=== PATIENT | female | born 1965 | race Caucasian/White ===

== ENCOUNTER 2017-11-20 18:00 | Emergency (ER) | payer BC ==
[2017-11-20 18:28] VITALS: BP 169/76
--- NOTE | 2017-11-20 19:16 | EDM.PDOC ---
ED HPI GENERAL MEDICAL PROBLEM - General Chief Complaint: Abdominal Pain Stated Complaint: abdominal pain Time Seen by Provider: 11/20/17 18:05 Source of Information: Reports: Patient History Limitations: Reports: No Limitations - History of Present Illness INITIAL COMMENTS - FREE TEXT/NARRATIVE: Patient was at home getting when she has sudden onset of left lower quadrant discomfort sharpshooting pains that radiated to her umbilicus area. Patient states she became nauseous and dry heaves denies any diarrhea did have a bowel movement today denies any other similar illnesses fever chest pain shortness of breath. Denies eating any raw fish products raw meat or foreign travel within the last 30 days does have 2cats, 2 Dogs at Home but states they are vet certified. Onset: Sudden Onset Time: 01:00 Duration: Hour(s): Quality: Reports: Sharp, Stabbing Improves with: Reports: Immobilization, Rest Worsens with: Reports: Movement Associated Symptoms: Reports: Nausea/Vomiting. Denies: Diaphoresis, Fever/ Chills, Headaches, Loss of Appetite, Malaise, Seizure, Shortness of Breath Right Lower Abdominal Pain Score (Numeric/FACES): 10 - Related Data Allergies Allergy/AdvReac Type Severity Reaction Status Date / Time azithromycin Allergy Swelling Verified 11/20/17 18:22 [From Zithromax Z-Patrick] erythromycin base Allergy Rash Verified 11/20/17 18:22 [From Staticin] ethyl alcohol [From Staticin] Allergy Rash Verified 11/20/17 18:22 red yeast rice Allergy Rash Verified 11/20/17 18:22 Sulfa (Sulfonamide Allergy Rash Verified 11/20/17 18:22 Antibiotics) eggplant Allergy Hives Uncoded 11/21/16 20:28 Home Meds: Home Meds Sertraline [Zoloft] 100 mg PO DAILY 11/21/16 [History] atorvaSTATin [Lipitor] 20 mg PO Q7D 11/20/17 [History] metFORMIN HCl [Metformin HCl] 1,000 mg PO BID 11/20/17 [History] Past Medical History Endocrine/Metabolic History: Reports: Diabetes, Type II Oncologic (Cancer) History: Reports: Uterine - Past Surgical History GI Surgical History: Reports: Hernia, Abdominal Musculoskeletal Surgical History: Reports: Carpal Tunnel, Other (See Below) Social & Family History - Tobacco Use Smoking Status *Q: Current Every Day Smoker Years of Tobacco use: 25 Packs/Tins Daily: 0.5 ED ROS GENERAL - Review of Systems Review Of Systems: See Below Constitutional: Reports: No Symptoms HEENT: Reports: No Symptoms Respiratory: Reports: No Symptoms Cardiovascular: Reports: No Symptoms Endocrine: Reports: No Symptoms GI/Abdominal: Reports: Abdominal Pain : Reports: No Symptoms Musculoskeletal: Reports: No Symptoms Skin: Reports: No Symptoms ED EXAM, GI/ABD - Physical Exam Exam: See Below Exam Limited By: No Limitations General Appearance: Alert, WD/WN, No Apparent Distress Respiratory/Chest: No Respiratory Distress, Lungs Clear, Normal Breath Sounds, No Accessory Muscle Use, Chest Non-Tender Cardiovascular: Normal Peripheral Pulses, Regular Rate, Rhythm GI/Abdominal Exam: Rebound, Tender, Abnormal Bowel Sounds (Female) Exam: Normal External Exam, Normal Speculum Exam, Normal Bimanual Exam Back Exam: Normal Inspection, Full Range of Motion Extremities: Normal Inspection, Normal Range of Motion, Non-Tender, No Pedal Edema Neurological: Alert, Oriented, CN II-XII Intact, Normal Cognition Skin Exam: Warm, Dry, Intact, Normal Color, No Rash Course - Vital Signs Last Recorded V/S: Last Vital Signs Temp 36.9 C 11/20/17 18:24 Pulse 77 11/20/17 18:24 Resp 16 11/20/17 18:24 BP 169/76 H 11/20/17 18:24 Pulse Ox 96 11/20/17 18:24 - Orders/Labs/Meds Orders: Active Orders 24 hr Category Date Time Status Abdomen Pelvis wo Cont [CT] Stat Exams 11/20/17 18:17 Taken Abdomen wo Cont [CT] Stat Exams 11/20/17 18:06 Stop Req Sodium Chloride 0.9% @ 150 MLS/HR (1000ml) Med 11/20/17 20:45 Ordered Sodium Chloride 0.9% [Normal Saline] 1,000 ml IV ASDIRECTED Medication Orders Sodium Chloride (Normal Saline) 1,000 mls @ 150 mls/hr IV ASDIRECTED SERAFIN Labs: Laboratory Tests 11/20/17 11/20/17 11/20/17 Range/Units 18:23 18:23 18:23 WBC 12.0 H (4.0-10.0) x10^3/uL RBC 4.47 (4.00-5.50) x10^6/uL Hgb 14.3 (12.0-16.0) g/dL Hct 43.0 (33.0-47.0) % MCV 96.2 H (78.0-93.0) fL MCH 32.0 (26.0-32.0) pg MCHC 33.3 (32.0-36.0) g/dL RDW Coeff of [place] 13.4 (10.0-15.0) % Plt Count 214 (130-400) x10^3/uL Neut % (Auto) 69.3 (50.0-80.0) % Lymph % (Auto) 20.9 L (25.0-50.0) % [place] % (Auto) 5.7 (2.0-11.0) % Eos % (Auto) 4.0 (0.0-4.0) % Baso % (Auto) 0.1 L (0.2-1.2) % Sodium 140 (136-145) mmol/L Potassium 4.1 (3.5-5.1) mmol/L Chloride 102 (98-107) mmol/L Carbon Dioxide 25 (21-32) mmol/L BUN 16 (7-18) mg/dL Creatinine 1.0 (0.55-1.02) mg/dL Est Cr Clr Drug Dosing 58.12 mL/min Estimated GFR (MDRD) 59 Glucose 169 H (74-106) mg/dL Lactic Acid 1.9 (0.4-2.0) mmol/L Calcium 8.6 (8.5-10.1) mg/dL Corrected Calcium 9.08 (8.5-10.1) mg/dL Total Bilirubin 0.3 (0.2-1.0) mg/dL AST 13 L (15-37) U/L ALT 20 (14-59) U/L Alkaline Phosphatase 88 (46-116) U/L Total Protein 6.9 (6.4-8.2) g/dL Albumin 3.4 (3.4-5.0) g/dL Globulin 3.5 Albumin/Globulin Ratio 0.97 Amylase 22 L (25-115) U/L Lipase 100 (73-393) U/L Meds: Medications Generic Name Dose Route Start Last Admin Trade Name Freq PRN Reason Stop Dose Admin Sodium Chloride 1,000 mls @ 150 mls/hr 01/20/18 20:45 Normal Saline IV ASDIRECTED SERAFIN - Radiology Interpretation Free Text/Narrative:: Bowel containing ventral midline abdominal wall hernia resulting in a low to moderate grade mechanical obstruction and changes of strangulation. Hepatomegaly with diffuse stetosis CT Results Date: 11/20/17 Departure - Departure Time of Disposition: 20:46 Disposition: Home, Self-Care 01 Condition: Good Clinical Impression: Hernia with strangulation - Discharge Information Referrals: Herminia Verde NP [Primary Care Provider] - Forms: ED Department Discharge, Interfacility Transfer EMTALA - My Orders Last 24 Hours: My Active Orders 11/20/17 18:06 Abdomen wo Cont [CT] Stat 11/20/17 18:17 Abdomen Pelvis wo Cont [CT] Stat 11/20/17 20:45 Sodium Chloride 0.9% @ 150 MLS/HR (1000ml) Sodium Chloride 0.9% [Normal Saline] 1,000 ml IV ASDIRECTED - Assessment/Plan Last 24 Hours: My Active Orders 11/20/17 18:06 Abdomen wo Cont [CT] Stat 11/20/17 18:17 Abdomen Pelvis wo Cont [CT] Stat 11/20/17 20:45 Sodium Chloride 0.9% @ 150 MLS/HR (1000ml) Sodium Chloride 0.9% [Normal Saline] 1,000 ml IV ASDIRECTED
[2017-11-20] MEDS ORDERED: Sodium Chloride 0.9% 1,000 ML IV SCH (20:45)
== END 2017-11-20 21:20 | disposition short-term general hospital (02) ==
LOC: VM.ED 18:00
DX: K43.6 Other and unspecified ventral hernia with obstruction, without gangrene (principal); E11.9 Type 2 diabetes mellitus without complications; F17.210 Nicotine dependence, cigarettes, uncomplicated; Z88.1 Allergy status to other antibiotic agents; Z79.899 Other long term (current) drug therapy; Z88.8 Allergy status to other drugs, medicaments and biological substances; Z88.2 Allergy status to sulfonamides
CPT/HCPCS: 74176; 80053; 82150; 83605; 83690; 85025; 96365; 99285; J7030

== ENCOUNTER 2018-03-18 01:29 | Emergency (ER) | payer BC ==
[2018-03-18] MEDS ORDERED: Sodium Chloride 0.9% 10 ML Syringe FLUSH PRN (01:34)
[2018-03-18] MEDS ORDERED: Morphine 4 MG/ML Syringe IVPUSH ONE (01:35)
[2018-03-18] MEDS ORDERED: Ondansetron 4 MG/2 ML SDV IVPUSH ONE (01:37)
[2018-03-18 02:28] VITALS: BP 125/62
[2018-03-18 02:42] LABS: CHLORIDE,CL 102 mmol/L (98-107); SODIUM,NA 132 mmol/L (136-145)
[2018-03-18] MEDS ORDERED: cefTRIAXone 2 GM Vial IVPUSH ONE (02:45)
[2018-03-18] MEDS ORDERED: Take Home: Doxycycline 100 MG Tab, 4 Tab Pack PO ONE (02:46)
[2018-03-18] MEDS ORDERED: methylPREDNISolone Sodium Succinate 125 MG/2 ML SDV IV ONE (02:46)
--- NOTE | 2018-03-18 03:37 | EDM.PDOC ---
ED HPI GENERAL MEDICAL PROBLEM - General Chief Complaint: Chest Pain Stated Complaint: chest pain Time Seen by Provider: 03/18/18 01:35 Source of Information: Reports: Patient - History of Present Illness INITIAL COMMENTS - FREE TEXT/NARRATIVE: Pt. presents to ER with complaints of L sided anterior chest pain. Pt. states that this started tonight and is worse with deep breathing. She denies any calf pain or swelling. No radiation of the pain to her jaw, arm, neck, or back. She states that she is currently on amoxicillin for a sinus infection. 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 Onset: Today Location: Reports: Chest Quality: Reports: Ache, Burning Associated Symptoms: Reports: Chest Pain Left Chest Pain Score (Numeric/FACES): 10 - Related Data Allergies Allergy/AdvReac Type Severity Reaction Status Date / Time azithromycin Allergy Swelling Verified 03/18/18 01:33 [From Zithromax Z-Patrick] erythromycin base Allergy Rash Verified 03/18/18 01:33 [From Staticin] ethyl alcohol [From Staticin] Allergy Rash Verified 03/18/18 01:33 red yeast rice Allergy Rash Verified 03/18/18 01:33 Sulfa (Sulfonamide Allergy Rash Verified 03/18/18 01:33 Antibiotics) eggplant Allergy Hives Uncoded 03/18/18 01:33 Home Meds: Home Meds Sertraline [Zoloft] 100 mg PO DAILY 11/21/16 [History] atorvaSTATin [Lipitor] 20 mg PO Q7D 11/20/17 [History] metFORMIN HCl [Metformin HCl] 1,000 mg PO BID 11/20/17 [History] Amoxicillin 1 tab PO TID 03/18/18 [History] Liraglutide [Victoza] 1.8 mg SQ BEDTIME 03/18/18 [History] Past Medical History Cardiovascular History: Reports: High Cholesterol Genitourinary History: Reports: Other (See Below) Other Genitourinary History: hernia repair Endocrine/Metabolic History: Reports: Diabetes, Type II Oncologic (Cancer) History: Reports: Uterine - Past Surgical History GI Surgical History: Reports: Hernia, Abdominal Female Surgical History: Reports: Hysterectomy Musculoskeletal Surgical History: Reports: Carpal Tunnel Social & Family History - Tobacco Use Smoking Status *Q: Current Every Day Smoker Years of Tobacco use: 30 Packs/Tins Daily: 1 ED ROS GENERAL - Review of Systems Review Of Systems: See Below Constitutional: Reports: No Symptoms HEENT: Reports: No Symptoms Respiratory: Reports: No Symptoms Cardiovascular: Reports: Chest Pain Endocrine: Reports: No Symptoms GI/Abdominal: Reports: No Symptoms : Reports: No Symptoms Musculoskeletal: Reports: No Symptoms Skin: Reports: No Symptoms Neurological: Reports: No Symptoms Psychiatric: Reports: No Symptoms Hematologic/Lymphatic: Reports: No Symptoms Immunologic: Reports: No Symptoms ED EXAM, GENERAL - Physical Exam Exam: See Below Exam Limited By: No Limitations General Appearance: Alert, WD/WN, No Apparent Distress Ears: Normal External Exam, Normal Canal, Hearing Grossly Normal, Normal TMs Ear Exam: Bilateral Ear: Auricle Normal, Canal Normal, TM normal Nose: Normal Inspection, Normal Mucosa, No Blood Throat/Mouth: Normal Inspection, Normal Lips, Normal Teeth, Normal Gums, Normal Oropharynx, Normal Voice, No Airway Compromise Head: Atraumatic, Normocephalic Neck: Normal Inspection, Supple, Non-Tender, Full Range of Motion Respiratory/Chest: No Respiratory Distress, Normal Breath Sounds, No Accessory Muscle Use Cardiovascular: Normal Peripheral Pulses, Regular Rate, Rhythm, No Edema, No Gallop, No JVD, No Murmur, No Rub GI/Abdominal: Normal Bowel Sounds, Soft, Non-Tender, No Organomegaly, No Distention, No Abnormal Bruit, No Mass (Female) Exam: Deferred Rectal (Female) Exam: Deferred Back Exam: Normal Inspection, Full Range of Motion, NT Extremities: Normal Inspection, Normal Range of Motion, Non-Tender, Normal Capillary Refill, No Pedal Edema Neurological: Alert, Oriented, CN II-XII Intact, Normal Cognition, Normal Gait, Normal Reflexes, No Motor/Sensory Deficits Psychiatric: Normal Affect, Normal Mood Skin Exam: Warm, Dry, Intact, Normal Color, No Rash Lymphatic: No Adenopathy Course - Vital Signs Last Recorded V/S: Last Vital Signs Temp 37.3 C 03/18/18 01:30 Pulse 91 03/18/18 02:27 Resp 18 03/18/18 02:27 BP 125/62 03/18/18 02:27 Pulse Ox 90 L 03/18/18 02:27 - Orders/Labs/Meds Orders: Active Orders 24 hr Category Date Time Status EKG Documentation Completion [RC] STAT Care 03/18/18 01:34 Active Chest 2V [CR] Stat Exams 03/18/18 01:34 Taken Peripheral IV Insertion Adult [OM.PC] Routine Oth 03/18/18 01:35 Ordered Labs: Laboratory Tests 03/18/18 03/18/18 03/18/18 Range/Units 02:07 02:07 02:07 WBC 14.7 H (4.0-10.0) x10^3/uL RBC 4.63 (4.00-5.50) x10^6/uL Hgb 14.7 (12.0-16.0) g/dL Hct 44.1 (33.0-47.0) % MCV 95.2 H (78.0-93.0) fL MCH 31.7 (26.0-32.0) pg MCHC 33.3 (32.0-36.0) g/dL RDW Coeff of [place] 13.6 (10.0-15.0) % Plt Count 242 (130-400) x10^3/uL Neut % (Auto) 76.6 (50.0-80.0) % Lymph % (Auto) 13.6 L (25.0-50.0) % [place] % (Auto) 7.5 (2.0-11.0) % Eos % (Auto) 2.2 (0.0-4.0) % Baso % (Auto) 0.1 L (0.2-1.2) % PT 9.6 (9.6-11.4) SEC INR 0.9 L (2.0-3.5) D-Dimer, Quantitative 0.37 (<=0.58) mg/LFEU Sodium 132 L (136-145) mmol/L Potassium 4.3 (3.5-5.1) mmol/L Chloride 102 (98-107) mmol/L Carbon Dioxide 23 (21-32) mmol/L Anion Gap 11.3 (10-20) mmol/L BUN 16 (7-18) mg/dL Creatinine 0.8 (0.55-1.02) mg/dL Est Cr Clr Drug Dosing TNP Estimated GFR (MDRD) > 60 Glucose 123 H (74-106) mg/dL Calcium 8.9 (8.5-10.1) mg/dL Corrected Calcium 9.38 (8.5-10.1) mg/dL Magnesium 1.9 (1.8-2.4) mg/dL Total Bilirubin 0.4 (0.2-1.0) mg/dL AST 12 L (15-37) U/L ALT 19 (14-59) U/L Alkaline Phosphatase 73 (46-116) U/L POC Troponin I (0.00-0.08) ng/mL C-Reactive Protein 13.4 H (<=0.9) mg/dL NT-Pro-B Natriuret Pep 20 (<=125) pg/mL Total Protein 7.4 (6.4-8.2) g/dL Albumin 3.4 (3.4-5.0) g/dL Globulin 4.0 Albumin/Globulin Ratio 0.85 // Range/Units 02:13 WBC (4.0-10.0) x10^3/uL RBC (4.00-5.50) x10^6/uL Hgb (12.0-16.0) g/dL Hct (33.0-47.0) % MCV (78.0-93.0) fL MCH (26.0-32.0) pg MCHC (32.0-36.0) g/dL RDW Coeff of [place] (10.0-15.0) % Plt Count (130-400) x10^3/uL Neut % (Auto) (50.0-80.0) % Lymph % (Auto) (25.0-50.0) % [place] % (Auto) (2.0-11.0) % Eos % (Auto) (0.0-4.0) % Baso % (Auto) (0.2-1.2) % PT (9.6-11.4) SEC INR (2.0-3.5) D-Dimer, Quantitative (<=0.58) mg/LFEU Sodium (136-145) mmol/L Potassium (3.5-5.1) mmol/L Chloride (98-107) mmol/L Carbon Dioxide (21-32) mmol/L Anion Gap (10-20) mmol/L BUN (7-18) mg/dL Creatinine (0.55-1.02) mg/dL Est Cr Clr Drug Dosing Estimated GFR (MDRD) Glucose (74-106) mg/dL Calcium (8.5-10.1) mg/dL Corrected Calcium (8.5-10.1) mg/dL Magnesium (1.8-2.4) mg/dL Total Bilirubin (0.2-1.0) mg/dL AST (15-37) U/L ALT (14-59) U/L Alkaline Phosphatase (46-116) U/L POC Troponin I 0.02 (0.00-0.08) ng/mL C-Reactive Protein (<=0.9) mg/dL NT-Pro-B Natriuret Pep (<=125) pg/mL Total Protein (6.4-8.2) g/dL Albumin (3.4-5.0) g/dL Globulin Albumin/Globulin Ratio Meds: Medications Discontinued Medications Generic Name Dose Route Start Last Admin Trade Name Freq PRN Reason Stop Dose Admin Ceftriaxone Sodium 2 gm 03/18/18 02:45 03/18/18 02:55 Rocephin IVPUSH 03/18/18 02:46 2 gm ONETIME ONE Administration Doxycycline Monohydrate 1 packet 03/18/18 02:46 03/18/18 02:53 Take Home: Doxycycline 100 Mg, 4 Tab Pack PO 03/18/18 02:47 1 packet ONETIME ONE Administration Methylprednisolone Sodium Succinate 125 mg 03/18/18 02:46 03/18/18 02:54 Solu-Medrol IV 03/18/18 02:47 125 mg ONETIME ONE Administration Morphine Sulfate 4 mg 03/18/18 01:35 03/18/18 01:47 Morphine IVPUSH 03/18/18 01:36 4 mg ONETIME ONE Administration Ondansetron HCl 4 mg 03/18/18 01:37 03/18/18 01:45 Zofran IVPUSH 03/18/18 01:38 4 mg ONETIME ONE Administration Sodium Chloride 10 ml 03/18/18 01:34 Saline Flush FLUSH ASDIRECTED PRN Keep Vein Open Departure - Departure Time of Disposition: 03:09 Disposition: Home, Self-Care 01 Condition: Good Clinical Impression: Atypical chest pain - Discharge Information Instructions: Doxycycline tablets or capsules, Pleurisy, [id number], Prednisone tablets, Community-Acquired Pneumonia, Adult, [id number] Referrals: PCP,Unobtain [Primary Care Provider] - Forms: ED Department Discharge Additional Instructions: doxycycline 100mg twice daily for 10 days predisone 40mg once daily for 5 days ibuprofen 600mg every 6 hours as needed for pain Follow-up in clinic in 10-14 days drink plenty of fluids and get up and walk often. - My Orders Last 24 Hours: My Active Orders 03/18/18 01:34 EKG Documentation Completion [RC] STAT Chest 2V [CR] Stat 03/18/18 01:35 Peripheral IV Insertion Adult [OM.PC] Routine - Assessment/Plan Last 24 Hours: My Active Orders 03/18/18 01:34 EKG Documentation Completion [RC] STAT Chest 2V [CR] Stat 03/18/18 01:35 Peripheral IV Insertion Adult [OM.PC] Routine
== END 2018-03-18 03:09 | disposition home or self-care (01) ==
LOC: VM.ED 01:29
DX: R07.89 Other chest pain (principal); E78.00 Pure hypercholesterolemia, unspecified; E11.9 Type 2 diabetes mellitus without complications; F17.210 Nicotine dependence, cigarettes, uncomplicated; Z88.1 Allergy status to other antibiotic agents; Z88.8 Allergy status to other drugs, medicaments and biological substances; Z88.2 Allergy status to sulfonamides; Z91.018 Allergy to other foods; Z79.899 Other long term (current) drug therapy; Z79.84 Long term (current) use of oral hypoglycemic drugs
CPT/HCPCS: 36415; 71046; 80053; 83735; 83880; 84484; 85025; 85379; 85610; 86140; 93005; 96374; 96375; 99285; A9270; J0696; J2270; J2405; J2930

== ENCOUNTER 2021-04-07 09:33 | Day surgery (SDC) | payer OTHER ==
[2021-04-07] MEDS: Lactated Ringers 1,000 ML IV SCH (10:00)
[2021-04-07] MEDS ORDERED: Propofol 200 MG/20 ML SDV ONE ×2 (10:50→11:17)
[2021-04-07] MEDS ORDERED: fentaNYL 100 MCG/2 ML SDV ONE (10:50)
[2021-04-07 12:09] VITALS: BP 149/88; PULSE 65
--- NOTE | 2021-04-07 14:40 | OR ---
PREOPERATIVE DIAGNOSIS: History of colon polyps. POSTOPERATIVE DIAGNOSIS: History of colon polyps. PROCEDURE PERFORMED: Colonoscopy with polypectomy. COMPLICATIONS: None. SPECIMENS: Polyps x2 at the cecum, x2 at 85 cm, x1 at 60 cm, and x1 at 20 cm. ESTIMATED BLOOD LOSS: 5 mL. ANESTHESIA: Sedation. PROCEDURE IN DETAIL: This was done in the endoscopy suite. Sedation was given per Anesthesia. She was placed in the left lateral position. First, a rectal exam was done and was normal. Scope was introduced into the rectum and slowly advanced through the rectum, sigmoid, descending, transverse, and ascending colon until the cecum was reached. Upon reaching the cecum, scope was slowly withdrawn looking at all mucosal surfaces on the way out. No abnormal polyps or masses were noted except for the above-mentioned polyps; two at the cecum, two at 85 cm, one at 60 cm, and one at 20 cm. These were all removed with a combination of hot loop forceps and grasping forceps and they were all sent to Pathology. BKD: 04/07/2021 12:28:01 MODL: 04/07/2021 13:53:02 /[id number]
== END 2021-04-07 12:45 | disposition home or self-care (01) ==
LOC: VM.SDS 09:33
PROVIDERS: ATTEND Surgery
DX: Z12.11 Encounter for screening for malignant neoplasm of colon (principal); D12.0 Benign neoplasm of cecum; I10 Essential (primary) hypertension; E66.9 Obesity, unspecified; F17.210 Nicotine dependence, cigarettes, uncomplicated; E11.69 Type 2 diabetes mellitus with other specified complication; E78.2 Mixed hyperlipidemia; Z79.899 Other long term (current) drug therapy; Z98.890 Other specified postprocedural states; Z88.2 Allergy status to sulfonamides; Z88.8 Allergy status to other drugs, medicaments and biological substances; Z79.4 Long term (current) use of insulin
CPT/HCPCS: 00812; 82947; J2704; J3010; J7120

== ENCOUNTER 2022-03-20 14:52 | Emergency (ER) | payer OTHER ==
[2022-03-20] MEDS ORDERED: Ketorolac 30 MG/ML SDV IM ONE (16:01)
[2022-03-20] MEDS ORDERED: Take Home: Acetaminophen/HYDROcodone 325-5 MG, 5 Tab Pack PO ONE (16:28)
[2022-03-20 20:53] VITALS: BP 146/77; PULSE 72
== END 2022-03-20 16:44 | disposition home or self-care (01) ==
LOC: VM.ED 14:52
DX: S20.211A Contusion of right front wall of thorax, initial encounter (principal); E78.00 Pure hypercholesterolemia, unspecified; I10 Essential (primary) hypertension; E11.9 Type 2 diabetes mellitus without complications; F17.210 Nicotine dependence, cigarettes, uncomplicated; Z79.84 Long term (current) use of oral hypoglycemic drugs; Z91.048 Other nonmedicinal substance allergy status; Z88.1 Allergy status to other antibiotic agents; Z91.018 Allergy to other foods; Z88.2 Allergy status to sulfonamides; Z90.710 Acquired absence of both cervix and uterus; Z79.899 Other long term (current) drug therapy; W18.39XA Other fall on same level, initial encounter
CPT/HCPCS: 71101-RT; 96372; 99284; 99284-25; J1885

== ENCOUNTER 2025-05-04 20:55 | Emergency (ER) | payer BC ==
[2025-05-04 21:28] VITALS: BP 105/68; PULSE 91
== END 2025-05-04 21:45 | disposition home or self-care (01) ==
LOC: VM.ED 20:55 → SUPCPDRO 20:55 → VM.ED 21:45
DX: T24.212A Burn of second degree of left thigh, initial encounter (principal); T24.211A Burn of second degree of right thigh, initial encounter; T31.0 Burns involving less than 10% of body surface; I10 Essential (primary) hypertension; E78.00 Pure hypercholesterolemia, unspecified; E11.9 Type 2 diabetes mellitus without complications; Z88.1 Allergy status to other antibiotic agents; Z88.2 Allergy status to sulfonamides; Z91.09 Other allergy status, other than to drugs and biological substances; Z91.048 Other nonmedicinal substance allergy status; Z79.84 Long term (current) use of oral hypoglycemic drugs; Z79.899 Other long term (current) drug therapy; Z90.710 Acquired absence of both cervix and uterus; W39.XXXA Discharge of firework, initial encounter
CPT/HCPCS: 96374; 99283; A9270; J1171